=== PATIENT | female | born 1950 | race Caucasian/White ===

== ENCOUNTER → 2016-12-21 | Outpatient (REF) | payer MEDICARE | END | disposition home or self-care (01) | LOC: M LAB REF 10:40 | PROVIDERS: ATTEND Registered Nurse | DX: L82.1 Other seborrheic keratosis (principal) ==

== ENCOUNTER 2020-07-04 12:20 | Day surgery (SDC) | payer MEDICARE, BC, OTHER ==
[2020-07-04] MEDS ORDERED: fentaNYL 100 MCG/2 ML INJECTION (J3010) ONE (12:43)
[2020-07-04] MEDS ORDERED: LIDOCAINE 2% 100MG/5ML SDV (FOR ANES.) ONE (12:43)
[2020-07-04] MEDS ORDERED: dexameTHASONE 4 MG/ML 1ML VIAL (J1100 PER 1MG) ONE ×2 (12:43)
[2020-07-04] MEDS ORDERED: MIDAZOLAM INJ 2MG/2ML VIAL (J2250 PER 1MG) ONE (12:43)
[2020-07-04] MEDS ORDERED: propofoL 500 MG/50 ML VIAL ONE (12:43)
[2020-07-04] MEDS ORDERED: ONDANSETRON 4MG/2ML VIAL ONE (12:43)
[2020-07-04] MEDS ORDERED: SCOPOLAMINE 1MG TRANSDERMAL PATCH ONE (13:19)
[2020-07-04] MEDS ORDERED: METOCLOPRAMIDE INJ 10MG/2ML VIAL (J2765 PER 1) ONE (14:54)
[2020-07-04] MEDS ORDERED: ACETAMINOPHEN 1000MG 100ML IV BTL (OFIRMEV) (J0131 PER 10MG) ONE (14:54)
[2020-07-04] MEDS ORDERED: KETOROLAC 60MG 2ML VIAL ONE (14:54)
[2020-07-04] MEDS ORDERED: ePHEDrine SULFATE 25 MG/5 ML(5MG/ML) SYRINGE ONE (15:27)
--- NOTE | 2020-08-29 13:34 | RO ---
DATE OF OPERATION: 07/04/2020 PREOPERATIVE DIAGNOSIS/INDICATION FOR SURGERY: Postmenopausal bleeding, abnormal ultrasound with a personal history of breast cancer as well as a history of abnormal pap. POSTOPERATIVE DIAGNOSIS: Postmenopausal bleeding, abnormal ultrasound with a personal history of breast cancer as well as a history of abnormal pap. PROCEDURE: Fractional dilatation and curettage (D and C) hysteroscopy, MyoSure, with polypectomy. SURGEON: Dr. Marr ANESTHESIA: Laryngeal mask airway (LMA). DIRECTOR OF DESIGN: None. SPECIMENS: Endocervical curettage and endometrial sampling and curettage sent separately. BRIEF SUMMARY OF PROCEDURE AND HOSPITAL FINDINGS: Kaela was brought to the operating room, where sufficient LMA anesthesia was induced. She was prepped, draped, and positioned in the usual sterile fashion, and after emptying the bladder, etc., then just the [place] was used to retract posteriorly, because at this point in life she does have some loss of caliber of the vagina, although she does also have some introital laxity and evidence of rectocele. At the apex she has a little loss of caliber, and so the [place] was more than enough. The anterior aspect of the cervix was grasped with a single-tooth tenaculum, and an endocervical curettage was carried out. This specimen was sent separately. Following this, the uterus was sounded to 8, the cervix dilated, and the MyoSure hysteroscope placed. Using the MyoSure, a large cavity filling polyp could readily be seen. We set up the Reach resector and then removed this polyp in its entirety. After removal, pictures of the normal-appearing endometrial cavity, normal ostia, very atrophic appearance and endocervical canal showed evidence of the curettage but no other lesions. We tried to sample the wall of the cavity as well, although it is really quite atrophic, and curettage was then carried out aggressively, trying to make sure that we had some sample other than the polyp, and all of the endometrial sampling and polyp were sent together. The endocervical sample, as already noted, was sent separately, and the procedure was then ended. ESTIMATED BLOOD LOSS FOR PROCEDURE: About 2 mL. FLUID REPLACEMENT: Crystalloid. COMPLICATIONS: None. CONDITION AND DISPOSITION: Kaela tolerated the procedure well and was recovering in the recovery room in good condition. EMELY
== END 2020-07-04 17:40 | disposition home or self-care (01) ==
LOC: M SDC 12:20
PROVIDERS: ATTEND Obstetrics & Gynecology
DX: N95.0 Postmenopausal bleeding (principal); N84.1 Polyp of cervix uteri; Z85.3 Personal history of malignant neoplasm of breast; Z92.21 Personal history of antineoplastic chemotherapy; Z92.3 Personal history of irradiation; I10 Essential (primary) hypertension; Z79.899 Other long term (current) drug therapy; D64.9 Anemia, unspecified; K21.9 Gastro-esophageal reflux disease without esophagitis
CPT/HCPCS: 58558; 88305; J0131; J1100; J1885; J2250; J2405; J2765; J3010

== ENCOUNTER → 2022-10-01 | Outpatient (CLI) | payer MEDICARE, BC, OTHER | LOC: M WHC 08:46 | PROVIDERS: ATTEND Physician Assistant | DX: N64.4 Mastodynia (principal) | CPT/HCPCS: 77065; G0279 ==

== ENCOUNTER → 2022-10-27 | Outpatient (CLI) | payer MEDICARE, BC, OTHER | LOC: M WHC 09:47 | PROVIDERS: ATTEND Physician Assistant | DX: N64.4 Mastodynia (principal) ==

== ENCOUNTER → 2023-10-05 | Outpatient (CLI) | payer MEDICARE, BC, OTHER | LOC: M WHC 10:26 | PROVIDERS: ATTEND Registered Nurse | DX: N64.4 Mastodynia (principal) | CPT/HCPCS: 77066; G0279 ==

== ENCOUNTER → 2024-10-11 | Outpatient (CLI) | payer MEDICARE, BC | LOC: M WHC 11:11 | PROVIDERS: ATTEND Physician Assistant | DX: Z12.31 Encounter for screening mammogram for malignant neoplasm of breast (principal) ==

== ENCOUNTER → 2025-07-25 | Outpatient (CLI) | payer MEDICARE, BC | LOC: M PLALAB 15:15 | PROVIDERS: ATTEND Surgery | DX: Z85.3 Personal history of malignant neoplasm of breast (principal) ==

== ENCOUNTER → 2025-08-13 | Outpatient (CLI) | payer MEDICARE, BC | LOC: M WHC 12:52 | PROVIDERS: ATTEND Surgery | DX: N63.20 Unspecified lump in the left breast, unspecified quadrant (principal); Z85.3 Personal history of malignant neoplasm of breast; Z90.11 Acquired absence of right breast and nipple; R92.322 Mammographic fibroglandular density, left breast; N60.02 Solitary cyst of left breast | CPT/HCPCS: 76642; 77066; G0279 ==